=== PATIENT | male | born 1965 ===

== ENCOUNTER 2023-11-11 18:52 | Emergency (ER) | payer OTHER, SELFPAY ==
[2023-11-11 18:56] VITALS: BP 197/109; BMI 24.4
[2023-11-11 19:15] LABS: % Basophils 0.5 % (0-2); % Eosinophils 0.6 % (0-6); % Immature Granulocytes 0.4 % (0-0.5); % Lymphocytes 15.2 % (20.5-51.1); % Monocytes 7.1 % (1.7-9.3); % Neutrophils 76.2 % (42.2-75.2); Absolute Basophils 0.1 10^3/uL (0-0.2); Absolute Eosinophils 0.1 10^3/uL (0-0.7); Absolute Lymphocytes 1.4 10^3/uL (1.2-3.4); Absolute Monocytes 0.7 10^3/uL (0.1-0.6); Absolute Neutrophils 7.2 10^3/uL (1.4-6.5); Hematocrit 46.1 % (39.0-52.0); Hemoglobin 17.3 g/dL (13.0-18.0); Mean Corp Hgb Conc. 37.5 g/dL (33.0-37.0); Mean Corpuscular Hgb 31.2 pg (27.0-31.0); Mean Corpuscular Volume 83.2 fL (80.0-94.0); Mean Platelet Volume 9.5 fL (7.4-10.4); Nucleated Red Blood Cells % 0 % (-); Platelet Count 218 10^3/uL (130-400); Red Blood Cell Count 5.54 10^6/uL (4.70-6.10); Red Cell Dist. Width 11.9 % (11.5-14.5); White Blood Cell Count 9.4 10^3/uL (4.8-10.8)
[2023-11-11 19:34] LABS: ALT (SGPT) 30 U/L (0-50); AST (SGOT) 31 U/L (17-59); Alkaline Phosphatase 91 U/L (38-126); Blood Urea Nitrogen 10 mg/dl (9-20); Calcium 9.4 mg/dl (8.4-10.2); Carbon Dioxide 27 mmol/L (22-30); Chloride 103 mmol/L (98-107); Estimated Creatinine Clearance 120 ml/min; Glucose 111 mg/dl (70-99); Potassium 3.6 mmol/L (3.5-5.1); Sodium 137 mmol/L (135-145); Total Bilirubin 1.2 mg/dl (0.2-1.3); Total Protein 7.2 g/dl (6.3-8.2); eGFR > 60.00
[2023-11-11 19:39] LABS: Troponin I < 0.012 ng/ml
--- NOTE | 2023-11-11 22:58 | ED.GENMED ---
History of Present Illness
General
Chief Complaint: Abdominal Symptoms
Source: patient
Exam Limitations: none
Time Seen by Provider: 11/11/23 20:22
Travel History
Have you had any contact with someone who has COVID-19?: No
Do you have any symptoms of coronavirus? Fever > 100 degrees, chills, cough, shortness of breath, sore throat, loss of taste or smell, muscle aches, or headache?: No
History of Present Illness
History of Present Illness:
58-year-old male who presents for evaluation for reflux symptoms he has been having for 2 to 3 weeks. Patient is feeling a little bit congested and anxious over the last few days but also notes he has had some reflux feeling in his lower chest with
some fullness in his throat. He was supposed to be taking a PPI daily but really has not been. He sort of only takes it when he feels he needs to. Patient states he has a severe case of whitecoat syndrome and states his blood pressure is
typically high when it is measured. He admits that he was seen at urgent care and they sent him here for evaluation. No palpitations. No shortness of breath. No indira chest pain.
Past History
Past History
ED Past Medical History: Other (Seizures as a child, anxiety)
ED Past Surgical History: Other (hernia)
Social History
Tobacco: Non-smoker
Phy Exam
Physical Exam
Physical Exam:
CONSTITUTIONAL Patient alert and oriented to person, place and time. Well-appearing. Vital signs reviewed.
HEAD atraumatic, normocephalic.
EYES eyelids normal to inspection, Pupils equally round and reactive to light, Extraocular muscles intact, Conjunctiva normal, Sclera normal.
NECK normal range of motion, Trachea midline, no jugular venous distention.
RESPIRATORY CHEST No respiratory distress noted, Chest expansion equal, Bilateral breath sounds clear.
CARDIOVASCULAR regular rate and rhythm, Heart sounds normal.
ABDOMEN abdomen nontender, Bowel sounds normal. No distention.
BACK normal inspection, no obvious deformities
UPPER EXTREMITY range of motion normal, Motor strength normal, no cyanosis, no edema.
LOWER EXTREMITY range of motion normal, Motor strength normal, no cyanosis, no edema.
NEURO Speech normal, No focal motor deficits, [place] coma scale 15, Memory normal, Cranial Nerves intact to screening exam.
SKIN skin warm, dry, and normal in color.
PSYCHIATRIC patient oriented to person place and time, Normal affect.
Course
Orders/Labs/Results
Orders:
Orders
11/11/23 19:00
Electrocardiogram (*1) Urgent
Reason for Study: Chest Pain
EKG- Treatment ONCE
11/11/23 19:09
Complete Blood Count/With Diff Urgent
Comprehensive Metabolic Panel Urgent
Troponin I Urgent
11/11/23 21:03
CR Chest - 2 Views Urgent
Comment:
Reason For Exam: cp, reflux, htn
11/11/23 22:55
Sucralfate Suspension [Carafate Suspension] 1 gm PO NOW STA
Abnormal Lab Results
11/11/23
19:09
MCH 31.2 H pg
(27.0-31.0)
MCHC 37.5 H g/dL
(33.0-37.0)
Absolute Neuts (auto) 7.2 H 10^3/uL
(1.4-6.5)
Absolute Monos (auto) 0.7 H 10^3/uL
(0.1-0.6)
Neutrophils % 76.2 H %
(42.2-75.2)
Lymphocytes % 15.2 L %
(20.5-51.1)
Glucose 111 H mg/dl
(70-99)
11/11/23 19:09
11/11/23 19:09
Vital Signs
Blood pressure: 165/90
Initial and Last Documented VS:
Initial Vital Signs
Temp Pulse Resp BP Pulse Ox
98.4 F 111 18 197/109 99
11/11/23 18:56 11/11/23 18:56 11/11/23 18:56 11/11/23 18:56 11/11/23 18:56
Last Documented Vital Signs
Temp Pulse Resp BP Pulse Ox
98.4 F 111 18 197/109 97
11/11/23 18:56 11/11/23 18:56 11/11/23 18:56 11/11/23 18:56 11/11/23 20:39
MDM/Problems Addressed
MDM/Problems Addressed:
Uncontrolled hypertension, gastroesophageal reflux disease
*Radiology
Radiology exam reviewed: radiology read reviewed and all reviewed NAD by ED Provider
*Pulse Oximetry
Patient hypoxic: no
*EKG
Interpreted by ED Provider?: Yes
Interpretation: normal
Rate: normal
[place]: normal axis
QRS Pattern: normal QRS
Ischemia: no ischemia
*Customer Success Director Interpretation
Rate: normal
Interpretation: normal
Rhythm: sinus
*Critical Care Note
Total Time (30-74mins, 75-104mins- exclusive of procedures): Not Applicable
Data Reviewed
Source: patient
Prescriptions/Medications Considered But Not Given:
Considered antihypertensives but patient suspects he has whitecoat syndrome. I think it is reasonable to have outpatient follow-up and to monitor blood pressure at home.
Patient Management
Escalation/DeEscalation of care consider admission/obs:
Patient appears well. Add Carafate. PPI daily. Recommended monitoring blood pressure at home with twice a day daily log. Patient will stick to a bland diet. He does drink a lot of iced tea and he will back off. Outpatient follow-up. No
clinical concern that he is having ACS given his normal to EKG despite symptoms for weeks
ED Attending Note
-
Portions of this chart may have been created with voice recognition software.� Occasional wrong word or��sound alike� substitutions may have occurred due to the inherent limitations of voice recognition software.
Discharge Plan
Departure
Patient Disposition: Home (Routine Discharge)
Date of Disposition: 11/11/23
Time of Disposition: 22:59
Patient with high blood pressure during this ER visit?: Yes
Discharge Problem:
Gastroesophageal reflux disease, Hypertension
Instructions: Acid Reflux and GERD in Adults (DC), [place] Diet, BLOOD PRESSURE
Prescriptions:
New
sucralfate [Carafate] 100 mg/mL suspension
10 ml PO QID Qty: 400 0RF
pantoprazole [Protonix] 40 mg tablet,delayed release (DR/EC)
40 mg PO DAILY Qty: 30 0RF
Rx Instructions:
Please take 30 minutes prior to eating or drinking anything in the morning.
Referrals:
Anthony Figueroa DO [Family Provider] -
Activity Restrictions/Additional Instructions:
Your blood pressure was elevated while in the Emergency Department, please have your doctor re-evaluate it in the next 48 hours as untreated hypertension may lead to serious complications.
Return immediately for chest pain, shortness of breath, palpitations, headache, vision changes, abdominal pain or any other concerns. Please see your doctor in the next 2 to 3 days for follow-up and reevaluation. Keep a log of your blood pressure
at home.
Interventions
Interventions:
*Risk Screen - Suicide Last Done: 11/11/23 20:39
*General Assessment Last Done: 11/11/23 20:39
*Neglect/Abuse Screening Last Done: 11/11/23 20:39
ED- Fall Risk Assessment Last Done: 11/11/23 20:39
*ED COVID-19 Vaccine History Last Done: 11/11/23 18:56
AM-Jcdtwi-Ggnuxvxxhw Assessment Last Done: 11/11/23 20:39
[2023-11-11] MEDS: CARAFATE SUSPENSION 1 GM PO (23:05)
== END 2023-11-11 23:35 | disposition home or self-care (01) ==
LOC: EMR 18:52
PROVIDERS: Emergency Medicine; EMERGENCY PHYSICIAN Emergency Medicine; FAMILY PHYSICIAN Family Medicine
DX: K21.9 Gastro-esophageal reflux disease without esophagitis (principal); I10 Essential (primary) hypertension
CPT/HCPCS: 99284; 71046; 80053; 84484; 85025; 93005